=== PATIENT | female | born 1955 | race Two or more races ===

== ENCOUNTER 2017-05-16 21:53 | Emergency (ER) | payer OTHER ==
[~2017-05-16] VITALS: Ht 157.5 cm; Wt 72.6 kg
--- NOTE | 2017-05-16 22:35 | NUR ---
ADMITTED FROM HOME VIA FAMILY CAR C/O LEFT CHEST RIB CAGE PAIN AFTER THE FALL. DR. FLORES SEEN & EVALUATED PT. ATTACHED TO MONITORS, BP, O2 SAT & HEART MONITORING. C-SCOPE SR.
[2017-05-16] MEDS ORDERED: IV NORMAL SALINE 1000 ML BAG IV ONE (22:45)
[2017-05-16 22:57] LABS: BASOPHILS % (AUTO) 0.2 % (0.0-2.0); EOSINOPHILS % (AUTO) 0.3 % (0.0-7.0); HEMATOCRIT 40.6 % (31.2-41.9); HEMOGLOBIN 13.7 g/dL (10.9-14.3); LYMPHOCYTES # (AUTO) 1.6 K/uL (20.0-40.0); LYMPHOCYTES % (AUTO) 15.8 % (20.5-51.5); MEAN CORPUSCULAR HEMOGLOBIN 29.7 uug (24.7-32.8); MEAN CORPUSCULAR HGB CONC 34 g/dL (32.3-35.6); MEAN CORPUSCULAR VOLUME 87.8 fL (75.5-95.3); MONOCYTES # (AUTO) 0.6 K/uL (2.0-10.0); MONOCYTES % (AUTO) 5.9 % (0.0-11.0); NEUTROPHILS # (AUTO) 8.1 K/uL (1.8-8.9); NEUTROPHILS % (AUTO) 77.8 % (38.5-71.5); PLATELET COUNT (AUTO) 301 K/uL (179-408); RED BLOOD CELL COUNT(AUTO) 4.62 MIL/uL (3.63-4.92); WHITE BLOOD COUNT (AUTO) 10.4 K/uL (3.8-11.8)
[2017-05-16 23:11] LABS: CREATININE 0.7 mg/dL (0.6-1.3); POTASSIUM 3.5 mmol/L (3.5-5.1)
[2017-05-16 23:21] LABS: BILIRUBIN,DIRECT 0.1 mg/dL (0.0-0.2); BILIRUBIN,TOTAL 0.7 mg/dL (0.2-1.0); TOTAL PROTEIN, SERUM 7.6 g/dL (6.4-8.2)
[2017-05-16] MEDS ORDERED: HYDROCODONE/APAP 5-325MG TABLET PO ONE (23:30)
[2017-05-17] MEDS ORDERED: AMOXICILLIN TRIHYDRATE 250 MG CAPSULE PO ONE
[2017-05-17] MEDS ORDERED: AMOXICILLIN TRIHYDRATE 250 MG CAPSULE ONE (00:50)
[2017-05-17] MEDS ORDERED: HYDROCODONE/APAP 5-325MG TABLET ONE (00:50)
[2017-05-17 01:11] VITALS: BP 144/78
== END 2017-05-17 00:55 | disposition home or self-care (01) ==
LOC: ER 21:59
DX: S02.5XXA Fracture of tooth (traumatic), initial encounter for closed fracture (principal); S20.211A Contusion of right front wall of thorax, initial encounter; I10 Essential (primary) hypertension; J45.909 Unspecified asthma, uncomplicated; Z90.710 Acquired absence of both cervix and uterus; W01.0XXA Fall on same level from slipping, tripping and stumbling without subsequent striking against object, initial encounter; Y93.89 Activity, other specified; Y99.8 Other external cause status; Y92.89 Other specified places as the place of occurrence of the external cause
CPT/HCPCS: 36415; 70030-TC; 70450; 71045; 85025; 85730; 93005; A4663; J7030

== ENCOUNTER 2018-01-13 21:25 | Emergency (ER) | payer OTHER ==
[~2018-01-13] VITALS: Ht 160 cm; Wt 72.6 kg
--- NOTE | 2018-01-13 21:39 | NUR ---
Low pathak in EDM - 01/13/18 at 2157 by OLEGARIO Pt. BIB [facility] 909 for c/o N/V since 1700 and diahrrea, no blood in stool, reports cramping in epigastric area,
[2018-01-13] MEDS ORDERED: HYDROCODONE/APAP 5-325MG TABLET PO ONE ×2 (22:00→23:15)
[2018-01-13] MEDS ORDERED: HYDROCODONE/APAP 5-325MG TABLET ONE ×2 (22:06→22:59)
--- NOTE | 2018-01-13 23:08 | NUR ---
Patient discharged to home in stable conditon. Written and verbal after care instructions given. Patient verbalizes understanding of instructions.
== END 2018-01-13 23:09 | disposition home or self-care (01) ==
LOC: ER 21:30
DX: M54.5 Low back pain (principal); M79.641 Pain in right hand; M79.642 Pain in left hand; M25.571 Pain in right ankle and joints of right foot; R07.9 Chest pain, unspecified; M25.572 Pain in left ankle and joints of left foot; F17.210 Nicotine dependence, cigarettes, uncomplicated; J45.909 Unspecified asthma, uncomplicated; Z90.710 Acquired absence of both cervix and uterus
CPT/HCPCS: 71045; 72110; A4663

== ENCOUNTER 2022-11-16 08:53 | Emergency (ER) | payer OTHER ==
[~2022-11-16] VITALS: Ht 160 cm; Wt 72.6 kg
[2022-11-16] MEDS ORDERED: OXYCODONE/APAP 5-325 MG TABLET ONE (09:55)
[2022-11-16] MEDS ORDERED: OXYCODONE/APAP 5-325 MG TABLET PO ONE (10:00)
[2022-11-16] MEDS ORDERED: IBUPROFEN 800 MG TABLET ONE (11:26)
[2022-11-16] MEDS ORDERED: IBUPROFEN 800 MG TABLET PO ONE (11:30)
[2022-11-16] MEDS ORDERED: [UNRECOGNIZED DRUG - CODE] PO (12:53)
[2022-11-16] MEDS ORDERED: TRAM50TA2 PO (12:53)
[2022-11-16 13:13] VITALS: BP 144/89; O2SAT 98
== END 2022-11-16 13:13 | disposition home or self-care (01) ==
LOC: ER 08:53
DX: M23.92 Unspecified internal derangement of left knee (principal); J45.909 Unspecified asthma, uncomplicated; F17.210 Nicotine dependence, cigarettes, uncomplicated; Z90.710 Acquired absence of both cervix and uterus
CPT/HCPCS: 73502; 73562; 73700; A4606; A4663

== ENCOUNTER 2022-12-04 13:35 | Emergency (ER) | payer OTHER ==
[~2022-12-04] VITALS: Ht 157.5 cm; Wt 62.6 kg
[~2022-12-04 13:35] MED LIST: TRAM50TA2 PO; [UNRECOGNIZED DRUG - CODE] PO
[2022-12-04 13:36] VITALS: O2SAT 99
[2022-12-04] MEDS ORDERED: diphenhydrAMINE 50 MG/1 ML VIAL IV ONE (14:00)
[2022-12-04] MEDS ORDERED: METOCLOPRAMIDE HCL 10 MG/2 ML VIAL IV ONE (14:00)
[2022-12-04] MEDS ORDERED: KETOROLAC TROMETHAMINE 15 MG INJ IVP ONE (14:00)
[2022-12-04 14:16] LABS: *BILIRUBIN,URIN NEGATIVE (NEGATIVE); *BLOOD, URINE NEGATIVE (NEGATIVE); *CLARITY,URINE CLEAR (CLEAR); *COLOR,URINE YELLOW (YELLOW); *KETONES,URINE NEGATIVE (NEGATIVE); *PROTEIN,URINE NEGATIVE (NEGATIVE); *UROBILINOGEN,URINE 0.2 E.U./dl (NORMAL); LEUKOCYTE ESTERASE ,URINE NEGATIVE (NEGATIVE); NITRITE, URINE NEGATIVE (NEGATIVE); UGLUCOSE NEGATIVE (NEGATIVE)
[2022-12-04 14:24] LABS: CALCIUM 9.1 mg/dL (8.5-10.1); CREATININE 0.5 mg/dL (0.6-1.3); POTASSIUM 3.8 mmol/L (3.5-5.1)
[2022-12-04] MEDS ORDERED: diphenhydrAMINE 50 MG/1 ML VIAL ONE (14:27)
[2022-12-04] MEDS ORDERED: METOCLOPRAMIDE HCL 10 MG/2 ML VIAL ONE (14:27)
[2022-12-04] MEDS ORDERED: KETOROLAC TROMETHAMINE 15 MG INJ ONE (14:27)
[2022-12-04 14:29] LABS: ALBUMIN 3.6 g/dL (3.4-5.0); BILIRUBIN,DIRECT 0.1 mg/dL (0.0-0.2); BILIRUBIN,TOTAL 0.5 mg/dL (0.2-1.0)
[2022-12-04] MEDS ORDERED: HYDROCODONE/APAP 5-325MG TABLET ONE (14:55)
[2022-12-04] MEDS ORDERED: HYDROCODONE/APAP 5-325MG TABLET PO ONE (15:00)
[2022-12-04 15:38] LABS: BASOPHILS % (AUTO) 0.5 % (0.0-2.0); DIFFERENTIAL COMMENT 0; EOSINOPHILS # (AUTO) 0.1 K/uL (0.0-0.7); EOSINOPHILS % (AUTO) 1.5 % (0.0-7.0); HEMATOCRIT 39.6 % (31.2-41.9); HEMOGLOBIN 13.2 g/dL (10.9-14.3); LYMPHOCYTES # (AUTO) 1.1 K/uL (0.8-4.8); LYMPHOCYTES % (AUTO) 20.4 % (20.5-51.5); MEAN CORPUSCULAR HEMOGLOBIN 29.9 uug (24.7-32.8); MEAN CORPUSCULAR HGB CONC 33 g/dL (32.3-35.6); MEAN CORPUSCULAR VOLUME 89.7 fL (75.5-95.3); MONOCYTES # (AUTO) 0.4 K/uL (0.1-1.30); MONOCYTES % (AUTO) 6.7 % (0.0-11.0); NEUTROPHILS # (AUTO) 3.9 K/uL (1.8-8.9); NEUTROPHILS % (AUTO) 70.9 % (38.5-71.5); PLATELET COUNT (AUTO) 335 K/uL (179-408); RED BLOOD CELL COUNT(AUTO) 4.41 MIL/uL (3.63-4.92); RED CELL DISTRIBUTION WIDTH 13.6 % (12.3-17.7); WHITE BLOOD COUNT (AUTO) 5.5 K/uL (3.8-11.8)
[2022-12-04] MEDS ORDERED: HYDR-4209 PO (16:34)
[2022-12-04] MEDS ORDERED: CYCL5TAB PO (16:36)
== END 2022-12-04 16:48 | disposition home or self-care (01) ==
LOC: ER 13:40
DX: M54.6 Pain in thoracic spine (principal); M54.2 Cervicalgia; R51.9 Headache, unspecified; J45.909 Unspecified asthma, uncomplicated; F17.210 Nicotine dependence, cigarettes, uncomplicated; Z90.710 Acquired absence of both cervix and uterus; Z79.899 Other long term (current) drug therapy
CPT/HCPCS: 36415; 70450; 72125; 85025; 85651; 85730; 93005; A4606; A4663; J1200; J1885; J2765